=== PATIENT | female | born 1970 | race Caucasian/White ===

== ENCOUNTER → 2017-04-28 | Outpatient (CLI) | payer SELFPAY ==
--- NOTE | 2017-04-28 16:00 | NM ---
EXAM DESCRIPTION: Hepatobiliary w/CCK CLINICAL HISTORY: 46 years Female, GALLBLADDER upper abdominal pain COMPARISON: None. TECHNIQUE: Hepatobiliary scan was performed utilizing 5.8 mCi of technetium Choletec. Ejection fraction was attempted using a fatty meal but was very suboptimal secondary to patient motion and a washout curve could not be obtained. FINDINGS: Normal distribution of the isotope on the initial imaging demonstrates initially hepatic and biliary activity with subsequent gallbladder activity within 15 minutes. After the fatty meal the patient became nauseated with right upper quadrant pain approximately 10 minutes later estimated ejection fraction at the end of the washout study was 36%, at the lower limits of normal. IMPRESSION: Normal distribution of the isotope on the initial hepatobiliary scan and suboptimal ejection fraction secondary to patient motion with the estimated ejection fraction of 36%. Electronically signed by: Garret Mcgee MD 04/28/2017 3:58 PM CDT
== END | disposition home or self-care (01) ==
LOC: NM 07:54
PROVIDERS: ATTEND Nurse Practitioner Family
DX: K82.4 Cholesterolosis of gallbladder (principal)
CPT/HCPCS: 78227; A9537